=== PATIENT | female | born 1960 | race Caucasian/White ===

== ENCOUNTER 2016-08-23 16:53 | Emergency (ER) | payer MEDICAID ==
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
[2016-08-23] MEDS ORDERED: Acetaminophen/oxyCODONE 325-5 MG Tab PO ONE (18:22)
[2016-08-23] MEDS ORDERED: Acetaminophen/oxyCODONE 325-5 MG Tab ONE (18:43)
[2016-08-23 18:54] VITALS: BP 155/72
--- NOTE | 2016-08-24 09:49 | CR ---
Left tibia and fibula: Two views of the left tibia and fibula were obtained. Comparison: No previous study. Previous resection of the distal fibula noted. Fusion noted at the tibiotalar joint with orthopedic screws in place. Bony structures are osteopenic. Knee prosthesis is noted. Nothing acute is appreciated. Plantar spur is incidentally noted. Impression: 1. Findings as noted above. Nothing acute is identified on two-view left tibia and fibula study. Diagnostic code #2
--- NOTE | 2016-08-24 09:49 | CR ---
Left ankle: Four views of the left ankle were obtained. Fusion again noted at the tibiotalar joint. Orthopedic screws are in place. Plantar spur is present. Mild soft tissue swelling is seen. Bony structures are osteopenic. No acute fracture or dislocation is identified. Previous resection of the distal fibula is noted. Impression: 1. Previous surgery. Other incidental findings. Nothing acute is identified on four-view left ankle exam. Diagnostic code #2
== END 2016-08-23 18:54 | disposition home or self-care (01) ==
LOC: JD.ED 16:53
DX: S86.912A Strain of unspecified muscle(s) and tendon(s) at lower leg level, left leg, initial encounter (principal); I10 Essential (primary) hypertension; F41.9 Anxiety disorder, unspecified; F32.9 Major depressive disorder, single episode, unspecified; M19.90 Unspecified osteoarthritis, unspecified site; F17.210 Nicotine dependence, cigarettes, uncomplicated; Z88.0 Allergy status to penicillin; Z88.1 Allergy status to other antibiotic agents; Z88.8 Allergy status to other drugs, medicaments and biological substances; Z79.899 Other long term (current) drug therapy; W18.31XA Fall on same level due to stepping on an object, initial encounter
CPT/HCPCS: 73590; 73610; 99284; A9270; 99283